=== PATIENT | male | born 1955 | race Native Hawaiian/Other Pacific Islander ===

== ENCOUNTER 2016-08-22 12:44 | Emergency (ER) | payer OTHER, MEDICAID ==
[2016-08-22 13:16] VITALS: TEMP 97.7
--- NOTE | 2016-08-22 13:37 | C.PDOC ---
History Of Present Illness Patient is a 60 year old male who presents to the ER with a complaint of hematuria that began this morning. Patient had an outpatient US done on 08/15 that showed positive BPH. Patient's urologist is Dr. Mariscal. Denies nausea, vomiting, or diarrhea. Time Seen by Provider: 08/22/16 13:22 Chief Complaint (Nursing): Male Genitourinary History Per: Patient History/Exam Limitations: no limitations Onset/Duration Of Symptoms: Hrs (Since AM) Associated Symptoms: denies: Nausea, Vomiting, Diarrhea Past Medical History Reviewed: Historical Data, Nursing Documentation, Vital Signs Vital Signs: Last Vital Signs Temp 97.7 F 08/22/16 13:12 Pulse 85 08/22/16 13:12 Resp 20 08/22/16 13:12 BP 136/81 08/22/16 13:12 Pulse Ox 99 08/22/16 14:01 - Medical History PMH: Benign Prostatic Hyperplasia, Hyperlipidemia, Hypothyroidism, Kidney Stones , Chronic Kidney Disease Surgical History: No Surg Hx - [facility] Procedures COLONOSCOPY (12/13/04) Family History: States: Unknown Family Hx - Social History Hx Alcohol Use: No Hx Substance Use: No - Immunization History Hx Tetanus Toxoid Vaccination: No Hx Influenza Vaccination: Yes Hx Pneumococcal Vaccination: No Review Of Systems Except As Marked, All Systems Reviewed And Found Negative. Gastrointestinal: Negative for: Nausea, Vomiting, Diarrhea Genitourinary: Positive for: Hematuria Physical Exam - Physical Exam Appears: Well, Non-toxic Skin: Normal Color, Warm, Dry Head: Atraumatic, Normacephalic Oral Mucosa: Moist Chest: Symmetrical Cardiovascular: Rhythm Regular, No Murmur Respiratory: Other (No acute respiratory distress. Patient speaking in complete sentences. ) Gastrointestinal/Abdominal: Soft, Tenderness (mild suprapubic), Distention ( mild suprapubic) Male Genital: Other (Gross blood on penis) Neurological/Psych: Oriented x3, Normal Speech, Normal Cognition ED Course And Treatment O2 Sat by Pulse Oximetry: 99 (Room air) Pulse Ox Interpretation: Normal Progress Note: Aguilar catheter inserted. Progress - Re-Evaluation Re-evaluation Note: 08/22/16 13:42 D/W DR Birgit MARISCAL AGREES W ER PLAN, FU OFFICE 08/22/16 15:15 S/P AGUILAR W CLEAR BLOODY URINE. PT TOLERATED WELL WO DIFF. D/W DR MARISCAL WILL FU OFFICE THIS WEEK, DC W ABX - Continuity of Care Discussed pt. case with assessment consultant/specialty: Urology Disposition Counseled Patient/Family Regarding: Studies Performed, Diagnosis, Need For Followup, Rx Given - Disposition Referrals: Rigo Mariscal MD [Staff Provider] - Disposition: HOME/ ROUTINE Disposition Time: 15:16 Condition: IMPROVED Prescriptions: Nitrofurantoin Macrocrystals [Macrobid] 1 cap PO BID #14 cap Instructions: Acute Hematuria (ED), Urinary Leg Bag (GEN) - Clinical Impression Clinical Impression: Hematuria - Scribe Statement The provider has reviewed the documentation as recorded by the Scribe Solo Penn All medical record entries made by the Scribe were at my direction and personally dictated by me. I have reviewed the chart and agree that the record accurately reflects my personal performance of the history, physical exam, medical decision making, and the department course for this patient. I have also personally directed, reviewed, and agree with the discharge instructions and disposition.
[2016-08-22 15:50] VITALS: BP 115/78; PULSE 84; RESP 18; O2SAT 98
== END 2016-08-22 15:49 | disposition home or self-care (01) ==
LOC: C.ER 12:44
DX: R31.9 Hematuria, unspecified (principal)

== ENCOUNTER 2016-08-22 18:35 | Inpatient (IN) | payer OTHER, MEDICAID ==
[2016-08-22] MEDS ORDERED: Sodium Chloride 0.9% 1,000 ML IV ONE (19:54)
--- NOTE | 2016-08-22 19:54 | C.PDOC ---
History Of Present Illness Patient, with a past medical history of benign prostatic hyperplasia, kidney stones, hypothyroidism, hyperlipidemia, and chronic kidney disease, presents to the ED complaining of large clots coming from the meatus which are causing pain. Patient was seen in the ED this morning for hematuria. Patient had an 18 bengali ruiz catheter put in and was discharged home. This evening, he notes large clots from the meatus. He spoke to Dr. Mariscal, his Urologist, who told the patient to go to the ER. An ultrasound was done on 08/15/16 which showed an enlarged prostate. Patient denies fever, chills, nausea, vomiting, abdominal pain, diarrhea, or back pain. Time Seen by Provider: 08/22/16 19:53 Chief Complaint (Nursing): Male Genitourinary History Per: Patient History/Exam Limitations: no limitations Onset/Duration Of Symptoms: Hrs, Worse Since (this evening) Current Symptoms Are (Timing): Still Present Severity: Severe Pain Scale Rating Of: 6 Quality Of Discomfort: Sharp, Burning, "Pain" Associated Symptoms: Urinary Symptoms. denies: Fever, Chills Alleviating Factors: None Recent travel outside of the [place]: No Additional History Per: Patient, Family, Prior Records Past Medical History Reviewed: Historical Data, Nursing Documentation, Vital Signs Vital Signs: Last Vital Signs Temp 97.6 F 08/22/16 19:24 Pulse 64 08/22/16 19:24 Resp 18 08/22/16 19:24 BP 98/64 L 08/22/16 19:24 Pulse Ox 100 08/22/16 20:49 - Medical History PMH: Benign Prostatic Hyperplasia, Hyperlipidemia, Hypothyroidism, Kidney Stones , Chronic Kidney Disease - [facility] Procedures COLONOSCOPY (12/13/04) Family History: States: Unknown Family Hx - Social History Hx Alcohol Use: No Hx Substance Use: No - Immunization History Hx Tetanus Toxoid Vaccination: No Hx Influenza Vaccination: Yes Hx Pneumococcal Vaccination: No Review Of Systems Constitutional: Negative for: Fever, Chills Gastrointestinal: Negative for: Nausea, Vomiting, Abdominal Pain, Diarrhea Genitourinary: Positive for: Hematuria, Other (clots from meatus) Musculoskeletal: Negative for: Back Pain Skin: Negative for: Rash, Lesions, Jaundice Neurological: Negative for: Weakness Psych: Negative for: Anxiety Physical Exam - Physical Exam Appears: Non-toxic, Other (moderate discomfort) Skin: Warm, Dry Head: Atraumatic, Normacephalic Eye(s): bilateral: PERRL, EOMI Oral Mucosa: Moist Neck: Supple Chest: Symmetrical Cardiovascular: Rhythm Regular Respiratory: No Rales, No Rhonchi, No Wheezing Gastrointestinal/Abdominal: Soft, Tenderness (suprapubic), No Guarding, No Rebound Back: No CVA Tenderness Male Genital: Other (indwelling ruiz with clots around the meatus) Extremity: Bilateral: Atraumatic, Normal Color And Temperature Neurological/Psych: Oriented x3 ED Course And Treatment - Laboratory Results Result Diagrams: 08/22/16 20:21 08/22/16 20:21 O2 Sat by Pulse Oximetry: 100 (RA) Pulse Ox Interpretation: Normal Progress Note: placed [address] ruiz for cbi, pt tolerated procedure well. instant relief Disposition Discussed With DrAlfredo: Andrea Barber Jr. Comment: accepted the pt on his service and took over the care at 9:31 PM Counseled Patient/Family Regarding: Studies Performed, Diagnosis - Disposition Disposition: HOSPITALIZED Disposition Time: 19:53 Condition: FAIR - Clinical Impression Clinical Impression: Hematuria, Urinary retention - Scribe Statement The provider has reviewed the documentation as recorded by the Scribe Lizy Mcginnis Provider Attestation: All medical record entries made by the Scribe were at my direction and personally dictated by me. I have reviewed the chart and agree that the record accurately reflects my personal performance of the history, physical exam, medical decision making, and the department course for this patient. I have also personally directed, reviewed, and agree with the discharge instructions and disposition.
[2016-08-22 20:32] LABS: BASO % 0.4 % (0.0-2.0); EOS % 0.6 % (0.0-4.0); HEMATOCRIT 37.6 % (35.0-51.0); LYMPH # 1.3 K/uL (1.0-4.3); LYMPH % 16.8 % (20.0-40.0); MEAN CELL VOLUME 81.3 fL (80.0-94.0); MEAN CORPUSCULAR HEMOGLOBIN 26.2 pg (27.0-31.0); MEAN CORPUSCULAR HGB CONC 32.2 g/dL (33.0-37.0); MEAN PLATELET VOLUME 10.6 fL (7.2-11.7); MONO # 0.5 K/uL (0.0-0.8); MONO % 6.3 % (0.0-10.0); RED CELL DISTRIBUTION WIDTH 13.7 % (11.5-14.5); WHITE BLOOD COUNT 7.4 K/uL (4.8-10.8)
[2016-08-22 20:42] LABS: CHLORIDE 99 mmol/L (98-107); SODIUM 136 mmol/L (132-148)
[2016-08-22 20:43] LABS: POTASSIUM 4.6 mmol/L (3.6-5.2)
[2016-08-22 20:44] LABS: INR 1.1
[2016-08-22 20:45] LABS: ALB/GLOB RATIO 1.3 (1.0-2.1); ALKALINE PHOSPHATASE 61 U/L (38-126); ALT/SGPT 21 U/L (21-72); AST/SGOT 22 U/L (17-59); BILIRUBIN,TOTAL 0.2 mg/dL (0.2-1.3); BLOOD UREA NITROGEN 11 mg/dL (9-20); CARBON DIOXIDE 26 mmol/L (22-30); GFR AFRICAN-AMERICAN > 60; GLUCOSE,RANDOM 170 mg/dL (75-110); TOTAL PROTEIN 6.8 g/dL (6.3-8.3)
[2016-08-22 20:46] LABS: CALCIUM 8.8 mg/dl (8.6-10.4)
[2016-08-22] MEDS ORDERED: Lidocaine 2% Jelly (Uro-Jet) ONE (20:47)
--- NOTE | 2016-08-22 22:58 | CP.PCM.HP ---
History of Present Illness - History of Present Illness History of Present Illness: Patient is a 60 year old male with past medical history of BPH, nephrolithiasis , HLD, DM who presents to the ER with complaint of hematuria and blood clots in the urine. Patient states he had a procedure with Dr. Mariscal three days ago where his bladder was cleaned out. Patient states he was told he may bleed following the procedure but that he did not start bleeding until this morning. Patient states he woke up at 4AM with blood in his urine and that he was passing clots as well. Patient went to the ED here and a ruiz catheter was inserted and he was given macrobid. Patient states he began to ooze blood and clots around the ruiz catheter and so he came back to the ER this evening. Patient states that prior to ruiz catheter insertion he was having urinary frequency and dysuria. Patient currently denies fever and chills but admits to weakness as well as suprapubic pain. PMD: Dr. Yassine Lennon Outpatient urologist Dr. Laron Reeves PMHx: BPH, HLD, nephrolithiasis, DM Meds: per list from daughter- Janumet XR 500mg, simvastatin 10mg, glimepiride 2mg, aspirin, tamsulosin 0.4mg q12h, vitamin D, centrum silver. was on rapaflo but stopped 2 days ago. patient was prescribed macrobid by ER this morning but did not start it yet PSHx: colonoscopy 5 years ago, possible cystoscopy, lithotripsy, ear surgery FamHx: age related hearing loss, both parents with diabetes Social Hx: denies alcohol, tobacco, drugs; lives in house with ; works as odd job laborer for [employer] Present on Admission - Present on Admission Any Indicators Present on Admission: Yes Urinary Catheter: Yes (places this AM) Review of Systems - Constitutional Constitutional: Weakness. absent: Chills, Fever, Lethargy - EENT Eyes: absent: Change in Vision Ears: Decreased Hearing (left ear- chronic) - Cardiovascular Cardiovascular: absent: Chest Pain, Diaphoresis, Dyspnea - Respiratory Respiratory: absent: Cough, Dyspnea - Gastrointestinal Gastrointestinal: absent: Abdominal Pain, Bloating, Constipation, Diarrhea, Hematochezia, Melena, Nausea, Vomiting - Genitourinary Genitourinary: Difficulty Urinating, Dysuria, Hematuria, Urinary Frequency, Hx /Renal Surgery - Musculoskeletal Musculoskeletal: absent: Back Pain - Integumentary Integumentary: absent: Rash, Swelling - Neurological Neurological: Weakness. absent: Dizziness, Focal Weakness - Psychiatric Psychiatric: absent: Behavioral Changes, Change in Appetite Past Patient History - Infectious Disease Hx of Infectious Diseases: None - Past Social History Smoking Status: Never Smoked - CARDIAC Hx Cardiac Disorders: Yes - RENAL Hx Chronic Kidney Disease: Yes Hx Kidney Stones: Yes - ENDOCRINE/METABOLIC Hx Hypothyroidism: Yes - GENITOURINARY/GYNECOLOGICAL Hx Genitourinary Disorders: Yes Hx Prostate Problems: Yes - PSYCHIATRIC Hx Substance Use: No - SURGICAL HISTORY Hx Surgeries: Yes Other/Comment: kidney stones removal - ANESTHESIA Hx Anesthesia: Yes Hx Anesthesia Reactions: No Meds Allergies/Adverse Reactions: Allergies Allergy/AdvReac Type Severity Reaction Status Date / Time No Known Allergies Allergy Verified 07/26/15 08:19 Physical Exam - Constitutional Appears: Non-toxic, No Acute Distress - Head Exam Head Exam: ATRAUMATIC, NORMOCEPHALIC - Eye Exam Eye Exam: EOMI, Normal appearance. absent: Scleral icterus Additional comments: no conjunctival pallor - ENT Exam ENT Exam: Mucous Membranes Moist - Respiratory Exam Respiratory Exam: Clear to Auscultation Bilateral. absent: Rales, Rhonchi, Wheezes - Cardiovascular Exam Cardiovascular Exam: +S1, +S2 - GI/Abdominal Exam GI & Abdominal Exam: Normal Bowel Sounds, Soft. absent: Distended, Tenderness - Exam Additional comments: CBI in place with clots around urethral meatus suprapubic tenderness - Extremities Exam Extremities exam: Positive for: normal inspection. Negative for: calf tenderness, pedal edema - Neurological Exam Neurological exam: Alert, Oriented x3 - Psychiatric Exam Psychiatric exam: Normal Affect - Skin Skin Exam: Dry, Normal Color, Warm Results - Vital Signs Recent Vital Signs: Last Vital Signs Temp 97.6 F 08/22/16 19:24 Pulse 64 08/22/16 19:24 Resp 18 08/22/16 19:24 BP 98/64 L 08/22/16 19:24 Pulse Ox 100 08/22/16 21:32 - Labs Result Diagrams: 08/22/16 20:21 08/22/16 20:21 Assessment & Plan (1) Hematuria Assessment and Plan: ruiz catheter exchanged for CBI consult placed for Dr. Rigo Mariscal- help appreciated patient to continue tamsulosin 0.4mg q12h UA and urine culture ordered start macrobid 100mg BID morphine 2mg q4 prn Status: Acute (2) History of BPH Assessment and Plan: continue tamsulosin 0.4mg q12h Status: Acute (3) HLD (hyperlipidemia) Assessment and Plan: continue equivalent of home med simvastatin 10mg- crestor 2.5mg Status: Acute (4) Diabetes Assessment and Plan: continue home medications: janument 500mg XR accuchecks with ISS ACHS Status: Acute (5) Prophylactic measure Assessment and Plan: SCDs no chemical anticoagulation in light of hematuria vegetarian diet- no onion, no garlic, no egg Status: Acute
[2016-08-23] MEDS ORDERED: Magnesium Hydroxide Susp 30 ml UD PO ONE ×2 (05:36→07:15)
[2016-08-23 06:56] LABS: BASO # 0.1 K/uL (0.0-0.2); BASO % 0.6 % (0.0-2.0); EOS # 0.1 K/uL (0.0-0.7); HEMATOCRIT 36.3 % (35.0-51.0); LYMPH # 1.3 K/uL (1.0-4.3); LYMPH % 15.3 % (20.0-40.0); MEAN CELL VOLUME 81.2 fL (80.0-94.0); MEAN CORPUSCULAR HEMOGLOBIN 26.3 pg (27.0-31.0); MEAN CORPUSCULAR HGB CONC 32.4 g/dL (33.0-37.0); MEAN PLATELET VOLUME 10.7 fL (7.2-11.7); MONO # 0.6 K/uL (0.0-0.8); MONO % 7.4 % (0.0-10.0); RED CELL DISTRIBUTION WIDTH 13.7 % (11.5-14.5); WHITE BLOOD COUNT 8.5 K/uL (4.8-10.8)
[2016-08-23 07:21] LABS: CHLORIDE 101 mmol/L (98-107)
[2016-08-23 07:22] LABS: SODIUM 138 mmol/L (132-148)
[2016-08-23 07:23] LABS: POTASSIUM 4.5 mmol/L (3.6-5.2)
[2016-08-23 07:25] LABS: ALB/GLOB RATIO 1.2 (1.0-2.1); ALKALINE PHOSPHATASE 62 U/L (38-126); ALT/SGPT 20 U/L (21-72); AST/SGOT 20 U/L (17-59); BILIRUBIN,TOTAL 0.2 mg/dL (0.2-1.3); BLOOD UREA NITROGEN 8 mg/dL (9-20); CARBON DIOXIDE 28 mmol/L (22-30); GFR AFRICAN-AMERICAN > 60; GLUCOSE,RANDOM 157 mg/dL (75-110); TOTAL PROTEIN 6.5 g/dL (6.3-8.3)
[2016-08-23 07:26] LABS: CALCIUM 8.7 mg/dl (8.6-10.4)
--- NOTE | 2016-08-23 08:56 | CON ---
DATE: 08/22/2016 For gross hematuria. This is a very pleasant gentleman, 50 years old. He has moderate voiding dysfunction. I have to lisandro ck my office notes. To my recollection, he also has a kidney stone. See the plans listed below. He presented now with gross hematuria earlier today. They inserted a Fo kvng catheter and he was discharged home when it was clear. And he was doing well for just a brief period of time. Apparently upon arrival at home, he was okay until he then developed gross hematuria then and leaking from the side of the catheter and he then ca lled me. I spoke to the son. We sent him back to the Emergency Room. We are admitting him now with gross hematuria. He currently has an indwelling 3-way Francis catheter. In a peculiar way, he is ble eding from the meatus of the penis, but the urine itself is relatively clear by CBI, see below, [place] I am concerned. I cannot assess well yet whether he is on any blood thinner. It appears that he takes aspirin, but t hat is it. I do not know if he takes fish oil or whether there is any other blood medications. I do have a list here that he is taking simvastatin. He had been apparently on Rapaflo, but had stopped this. I am not sure exactly why. The history is a little bit from the patient, from his and also from his son. The patient does not speak Persian perfectly, but I have been translating with the son and [id number]. See below. I have come to irrigate the Francis catheter. See the plans listed below. PAST MEDICAL AND SURGICAL HISTORY: As listed. A patient of . SOCIAL HISTORY: He came here with his . I have spoken to his children as well. Otherwise, unre markable. He is a nonsmoker. REVIEW OF SYSTEMS: Also listed above. Essentially noncontributory. PHYSICAL EXAMINATION: GENERAL: Well-nourished male, in no apparent distress. VITAL SIGNS: Within normal limits. LUNGS: Clear. ABDOMEN: Relatively soft, not overly grossly distended, but difficult to evaluate with his body habi tus. No CVA tenderness. GENITOURINARY: He has a normal phallus. He is circumcised. What is noted is the Francis catheter look s to be in good position and location, but of note, there is some blood at the meatus, but the urine within the CBI is clear. When we turn up the fluid, it drains well, when we turn up the wheel on CBI, and up down does not matter. See below. No testicular masses. RECTAL: Deferred at this point. LABORATORY VALUES: His hematocrit is noted to be 37.6 (see below, I suspect this will drop pretty qu ickly), white count is 7. The BUN and creatinine is 11/0.7. His serum glucose is 170. The remainder of labs are otherwise unremarkable. DIAGNOSES: Gross hematuria and urinary retention. At the bedside, I irrigated the catheter. It irrigates okay, although not perfectly, but I cannot ir rigate out any clots, but it seems to be working well. It is somewhat unusual to have the, at this point, even if there was bleeding via the urethra, once e put a catheter in, usually that would tamponade bleeding, especially in the absence of any kind of other bleeding . Specifically, the patient does not seem to have any. He is not bleeding from any other bleeding site s. No nasal bleeding, no rectal bleeding. His body does not look bruised. His labs including coags, etc. are all within normal limits and he does not have any obvious bl eeding medications, Coumadin, Eliquis, Plavix or the like. The patient, from what I can gather by wa y of translation with the son, the [id number] and the patient himself, it does not seem that he is taking this. So from urology standpoint, here is going to be the plan: 1. We are going to order milk of magnesia (the patient has not had a bowel movement in a few days). 2. We are going to put the patient in for a CAT scan of the abdomen and pelvis without and with IV c ontrast and see if we can further elucidate the potential source of his bleeding. The concern of cou rse would be bleeding from a malignancy. We need to evaluate this further. I need to check my office records. To my recollection, the patien t also has a kidney stone, but this would not explain well the bleeding at this point. He does not appear to be having renal colic. So for now the plan is as follows: 1. We are going to place compression stockings. 2. Milk of magnesia. 3. CT scan of abdomen and pelvis. 4. Continue the continuous bladder irrigation. 5. The patient may require cystoscopy and evacuation of clots with anesthesia. We will see how the patient does clinically and then we will make further recommendations and plans. James Mariscal MD cc: [phone] TT: 08/23/2016 08:55:27 Confirmation # [id number] Dictation # [id number] en
[2016-08-23] MEDS: (Novolin R) Insulin Human Regular 100 units/ml vial SC SCH ×4 (09:44→23:56)
[2016-08-23] MEDS ORDERED: Magnesium Hydroxide Susp 30 ml UD PO STA (11:12)
[2016-08-23] MEDS ORDERED: Iodixanol 320 mg/ml 150 ml Bottle IV ONE ×2 (13:04→15:45)
[2016-08-23] MEDS ORDERED: Magnesium Citrate Oral SOL (300 ml) PO ONE (15:07)
--- NOTE | 2016-08-23 17:21 | CT ---
PROCEDURE: CT Abdomen and Pelvis with and without intravenous contrast HISTORY: hematuria COMPARISON: None available. TECHNIQUE: Axial images of the abdomen were obtained in the pre contrast, portal venous and delayed phases of enhancement. Coronal and sagittal reformats were generated and reviewed. Contrast dose: 100 cc Visipaque 320 Radiation dose: Total exam DLP = 1362.77 mGy-cm. This CT exam was performed using one or more of the following dose reduction techniques: Automated exposure control, adjustment of the mA and/or kV according to patient size, and/or use of iterative reconstruction technique. FINDINGS: LOWER THORAX: Bibasilar atelectasis. No visible pleural effusion or pneumothorax. Small hiatal hernia/distal esophageal wall thickening. LIVER: Unremarkable. GALLBLADDER AND BILE DUCTS: Unremarkable. PANCREAS: Unremarkable. SPLEEN: Unremarkable. ADRENALS: Unremarkable. KIDNEYS AND URETERS: Wedge-shaped region of diminished enhancement identified involving medial left upper pole kidney which may reflect pyelonephritis. Differential considerations include sequela of vascular insults/infarct or infiltrating process. Too small characterize bilateral renal hypodensities, statistically likely cysts. No hydronephrosis. No obstructing calculus identified. VASCULATURE: No aortic aneurysm. BOWEL: The stomach contains ingested debris which limits evaluation. Moderate to severe diffuse constipation. APPENDIX: The appendix appears within normal limits of caliber. No secondary signs of acute appendicitis. PERITONEUM: No significant free fluid. No definite free air. LYMPH NODES: Retroperitoneal adenopathy, nonspecific. BLADDER: Francis catheter within urinary bladder which contains air likely related to recent instrumentation. REPRODUCTIVE: The prostate gland measures approximately 4.4 x 5.9 cm. BONES: Degenerative changes, greatest at L5-S1. OTHER FINDINGS: None. IMPRESSION: Wedge-shaped region of diminished enhancement identified involving medial left upper pole kidney which may reflect pyelonephritis. Differential considerations include sequela of vascular insults/infarct or infiltrating process. Correlate clinically. Too small characterize bilateral renal hypodensities, statistically likely cysts. Francis catheter within urinary bladder which contains air likely related to recent instrumentation. Correlate with urinalysis in order to exclude cystitis. Retroperitoneal adenopathy measuring up to 11 mm in short axis. , nonspecific. Moderate to severe constipation. The prostate gland appears enlarged. Recommend correlation with PSA. Small hiatal hernia/distal esophageal wall thickening.
[2016-08-23 18:11] VITALS: RESP 20
--- NOTE | 2016-08-23 20:07 | CP.PCM.PN ---
<Sukhi Du - Last Filed: 08/23/16 20:03> Subjective - Date & Time of Evaluation Date of Evaluation: 08/23/16 Time of Evaluation: 09:08 - Subjective Subjective: Pt seen and examined. Pt reports that he is passing much less blood in his urine today, but he has blood at his urethral meatus. Pt denies fever, chills, chest pain, shortness of breath, nausea, and vomiting. Objective - Vital Signs/Intake and Output Vital Signs (last 24 hours): Temp Pulse Resp BP Pulse Ox 98.1 F 75 20 114/74 98 08/23/16 15:10 08/23/16 15:10 08/23/16 15:10 08/23/16 15:10 08/23/16 15:10 - Medications Medications: Current Medications Glimepiride (Amaryl) 2 mg PO DAILY [facility] Last Admin: 08/23/16 09:56 Dose: 2 mg Ceftriaxone Sodium 1 gm/ (Sodium Chloride) 100 mls @ 100 mls/hr IVPB DAILY [facility] Last Admin: 08/23/16 09:57 Dose: 100 mls/hr Insulin Human Regular (Novolin R) 0 unit SC ACHS [facility] PRN Reason: Protocol Last Admin: 08/23/16 18:04 Dose: Not Given Metformin HCl (Glucophage Xr) 500 mg PO DAILY [facility] Last Admin: 08/23/16 09:57 Dose: 500 mg Morphine Sulfate (Morphine) 2 mg IVP Q4 PRN PRN Reason: Pain, moderate (4-7) Last Admin: 08/23/16 05:15 Dose: 2 mg Nitrofurantoin Macrocrystals (Macrobid) 100 mg PO Q12H [facility] Last Admin: 08/23/16 10:03 Dose: 100 mg Pneumococcal Polyvalent Vaccine (Pneumovax 23 Vaccine) 0.5 ml IM .ONCE ONE Stop: 08/25/16 10:01 Rosuvastatin Calcium (Crestor) 2.5 mg PO [facility] Sitagliptin Phosphate (Januvia) 50 mg PO DAILY [facility] Last Admin: 08/23/16 09:56 Dose: 50 mg Tamsulosin HCl (Flomax) 0.4 mg PO BID [facility] Last Admin: 08/23/16 18:28 Dose: 0.4 mg - Labs Labs: 08/23/16 06:50 08/23/16 06:50 PT 11.5 SECONDS (9.7-12.2) 08/23/16 06:50 INR 1.0 08/23/16 06:50 APTT 32 SECONDS (21-34) 08/23/16 06:50 - Constitutional Appears: No Acute Distress - Head Exam Head Exam: ATRAUMATIC, NORMOCEPHALIC - Eye Exam Eye Exam: EOMI, PERRL - ENT Exam ENT Exam: Mucous Membranes Moist. absent: Mucous Membranes Dry - Respiratory Exam Respiratory Exam: Clear to Ausculation Bilateral. absent: Rales, Rhonchi, Wheezes - Cardiovascular Exam Cardiovascular Exam: +S1, +S2 - GI/Abdominal Exam GI & Abdominal Exam: Soft. absent: Distended, Tenderness - Extremities Exam Extremities Exam: Full ROM. absent: Pedal Edema - Neurological Exam Neurological Exam: Alert, Awake, Oriented x3 - Psychiatric Exam Psychiatric exam: Normal Affect, Normal Mood - Skin Skin Exam: Normal Color, Warm Assessment and Plan - Assessment and Plan (Free Text) Assessment: Hematuria: Urology, Dr. Birgit Mariscal, consulted. Help appreciated. Ruiz irrigation as per Dr. Mariscal Abd/Pelvis Ct w/ and w/o IV contrast: wedge shaped region in left kidney which may represent pyelonephritis, ruiz catheter within urinary bladder, which contains air, correlate with U/A (please see full report) Ruiz catheter within urinary bladder, which contains air, correlate with U/A Rocephin 1 gm Iv qd Macrobid 100 mg po q12h Morphine 2 mg Iv q4h prn for pain Flomax 0.4 mg po bid Diabetes Mellitus: Metformin 500 mg po qd Januvia 50 mg po qd Amaryl 2 mg po qd Prophylactic Measures: DVT: SCDs, chemical anticoagulation contraindicated due to hematuria GI: protonix 40 mg po qd <Andrea Barber Jr. - Last Filed: 09/04/16 13:45> Objective - Vital Signs/Intake and Output Vital Signs (last 24 hours): Temp Pulse Resp BP Pulse Ox 98.2 F 76 20 114/61 98 08/24/16 16:00 08/24/16 16:00 08/24/16 16:00 08/24/16 16:00 08/24/16 16:00 - Labs Labs: 08/24/16 07:49 08/24/16 07:49 PT 11.5 SECONDS (9.7-12.2) 08/23/16 06:50 INR 1.0 08/23/16 06:50 APTT 32 SECONDS (21-34) 08/23/16 06:50 Attending/Attestation - Attestation I have personally seen and examined this patient.: Yes I have fully participated in the care of the patient.: Yes I have reviewed all pertinent clinical information, including history, physical exam and plan: Yes Notes (Text): 09/04/16 13:45 Agree with findings and plan
[2016-08-23] MEDS ORDERED: Rosuvastatin Calcium 2.5 mg Tab PO SCH (22:00)
--- NOTE | 2016-08-24 07:56 | PCM.URO ---
Urology Progress Note - Objective Lab Results Last 24 Hours: Laboratory Results - last 24 hr 08/23/16 08/23/16 08/23/16 11:50 16:32 21:13 POC Glucose (mg/dL) 209 H 96 208 H 08/24/16 06:47 POC Glucose (mg/dL) 126 H Intake & Output: Intake & Output 08/23/16 08/24/16 08/24/16 18:59 06:59 18:59 Intake Total 850 Output Total 3300 Balance -2450 Intake: Oral 850 Output: Urine 3300 3-way Urethral 3300 Other: # Bowel Movements 1 Vital Signs: Vital Signs - 24 hr 08/23/16 08/24/16 08/24/16 15:10 00:00 00:28 Temperature 98.1 F 98 F Pulse Rate 75 79 75 Respiratory 20 20 Rate Blood Pressure 114/74 111/66 O2 Sat by Pulse 98 100 Oximetry
[2016-08-24 07:57] LABS: BASO % 0.3 % (0.0-2.0); EOS # 0.1 K/uL (0.0-0.7); EOS % 1.6 % (0.0-4.0); HEMATOCRIT 38.8 % (35.0-51.0); LYMPH # 1.3 K/uL (1.0-4.3); LYMPH % 17.9 % (20.0-40.0); MEAN CELL VOLUME 81.7 fL (80.0-94.0); MEAN CORPUSCULAR HEMOGLOBIN 26.2 pg (27.0-31.0); MEAN CORPUSCULAR HGB CONC 32.1 g/dL (33.0-37.0); MONO # 0.6 K/uL (0.0-0.8); MONO % 8.6 % (0.0-10.0); RED CELL DISTRIBUTION WIDTH 13.9 % (11.5-14.5); WHITE BLOOD COUNT 7.1 K/uL (4.8-10.8)
[2016-08-24 08:16] LABS: CHLORIDE 102 mmol/L (98-107); POTASSIUM 4.1 mmol/L (3.6-5.2); SODIUM 139 mmol/L (132-148)
[2016-08-24 08:18] LABS: ALB/GLOB RATIO 1.2 (1.0-2.1); ALKALINE PHOSPHATASE 72 U/L (38-126); AST/SGOT 21 U/L (17-59); BILIRUBIN,TOTAL 0.2 mg/dL (0.2-1.3); CARBON DIOXIDE 27 mmol/L (22-30); GFR AFRICAN-AMERICAN > 60
[2016-08-24 08:19] LABS: ALT/SGPT 20 U/L (21-72); BLOOD UREA NITROGEN 7 mg/dL (9-20); CALCIUM 8.8 mg/dl (8.6-10.4); GLUCOSE,RANDOM 124 mg/dL (75-110); MAGNESIUM 2.3 mg/dL (1.6-2.3); PHOSPHOROUS 3.3 mg/dL (2.5-4.5)
[2016-08-24] MEDS: (Novolin R) Insulin Human Regular 100 units/ml vial SC SCH ×2 (09:02→12:42)
[2016-08-24] MEDS ORDERED: Pantoprazole 40 mg EC Tab PO SCH (10:00)
[2016-08-24 14:23] VITALS: O2SAT 98
[2016-08-24 16:39] VITALS: BP 114/61; PULSE 76; TEMP 98.2
[2016-08-24] MEDS ORDERED: Pneumococcal 23-Valent Vaccine IM ONE (16:45)
--- NOTE | 2016-08-24 23:01 | CP.PCM.DIS ---
Provider - Provider Date of Admission: 08/22/16 21:29 Attending physician: Andrea Barber Jr, MD Time Spent in preparation of Discharge (in minutes): 33 Hospital Course - Lab Results Lab Results: Most Recent Lab Values WBC 7.1 K/uL (4.8-10.8) 08/24/16 07:49 RBC 4.76 Mil/uL (4.40-5.90) 08/24/16 07:49 Hgb 12.5 g/dL (12.0-18.0) 08/24/16 07:49 Hct 38.8 % (35.0-51.0) 08/24/16 07:49 MCV 81.7 fL (80.0-94.0) 08/24/16 07:49 MCH 26.2 pg (27.0-31.0) L 08/24/16 07:49 MCHC 32.1 g/dL (33.0-37.0) L 08/24/16 07:49 RDW 13.9 % (11.5-14.5) 08/24/16 07:49 Plt Count 139 K/uL (130-400) 08/24/16 07:49 MPV 11.0 fL (7.2-11.7) 08/24/16 07:49 Neut % (Auto) 71.6 % (50.0-75.0) 08/24/16 07:49 Lymph % (Auto) 17.9 % (20.0-40.0) L 08/24/16 07:49 [place] % (Auto) 8.6 % (0.0-10.0) 08/24/16 07:49 Eos % (Auto) 1.6 % (0.0-4.0) 08/24/16 07:49 Baso % (Auto) 0.3 % (0.0-2.0) 08/24/16 07:49 Neut # 5.1 K/uL (1.8-7.0) 08/24/16 07:49 Lymph # 1.3 K/uL (1.0-4.3) 08/24/16 07:49 [place] # 0.6 K/uL (0.0-0.8) 08/24/16 07:49 Eos # 0.1 K/uL (0.0-0.7) 08/24/16 07:49 Baso # 0.0 K/uL (0.0-0.2) 08/24/16 07:49 PT 11.5 SECONDS (9.7-12.2) 08/23/16 06:50 INR 1.0 08/23/16 06:50 APTT 32 SECONDS (21-34) 08/23/16 06:50 Sodium 139 mmol/L (132-148) 08/24/16 07:49 Potassium 4.1 mmol/L (3.6-5.2) 08/24/16 07:49 Chloride 102 mmol/L (98-107) 08/24/16 07:49 Carbon Dioxide 27 mmol/L (22-30) 08/24/16 07:49 Anion Gap 14 (10-20) 08/24/16 07:49 BUN 7 mg/dL (9-20) L 08/24/16 07:49 Creatinine 0.7 MG/DL (0.8-1.5) L 08/24/16 07:49 Est GFR ( Amer) > 60 08/24/16 07:49 Est GFR (Non-Af Amer) > 60 08/24/16 07:49 POC Glucose (mg/dL) 105 mg/dL (65-110) 08/24/16 16:12 Random Glucose 124 mg/dL (75-110) H 08/24/16 07:49 Calcium 8.8 mg/dl (8.6-10.4) 08/24/16 07:49 Phosphorus 3.3 mg/dL (2.5-4.5) 08/24/16 07:49 Magnesium 2.3 mg/dL (1.6-2.3) 08/24/16 07:49 Total Bilirubin 0.2 mg/dL (0.2-1.3) 08/24/16 07:49 AST 21 U/L (17-59) 08/24/16 07:49 ALT 20 U/L (21-72) L 08/24/16 07:49 Alkaline Phosphatase 72 U/L (38-126) 08/24/16 07:49 Total Protein 7.0 g/dL (6.3-8.3) 08/24/16 07:49 Albumin 3.9 g/dL (3.5-5.0) 08/24/16 07:49 Globulin 3.1 gm/dL (2.2-3.9) 08/24/16 07:49 Albumin/Globulin Ratio 1.2 (1.0-2.1) 08/24/16 07:49 Prostate Specific Ag 4.20 ng/mL (0.00-4.0) H 08/23/16 06:50 - Hospital Course Hospital Course: HPI: Patient is a 60 year old male with past medical history of BPH, nephrolithiasis, HLD, DM who presented to the ER with complaint of hematuria and blood clots in the urine. Patient stated he had a procedure with Dr. Mariscal three days ago where his bladder was cleaned out. Patient stateds he was told he may bleed following the procedure but that he did not start bleeding until the following morning. Patient stated he woke up at 4AM with blood in his urine and that he was passing clots as well. Patient went to the ED and a ruiz catheter was inserted and he was given macrobid. Patient stated he began to ooze blood and clots around the ruiz catheter and so he came back to the ER in the evening. Patient states that prior to ruiz catheter insertion he was having urinary frequency and dysuria. Patient denied fever and chills. Hospital Course: Urologist, Dr. Dominik Mariscal, was consulted. Pt received irrigation of the ruiz catheter. Abd/Pelvis Ct w/ and w/o IV contrast revealed wedge shaped region in left kidney which may represent pyelonephritis, ruiz catheter within urinary bladder, which contains air, correlate with U/A (please see full report). Pt started on rocephin and macrobid. Once blood in ruiz catheter was clear after irrigation, pt had ruiz catheter removed. Pt passed clear urine. As per urologist, pt was cleared for discharge to home with outpatient follow up. Discharge Exam - Head Exam Head Exam: ATRAUMATIC, NORMOCEPHALIC - Eye Exam Eye Exam: EOMI, PERRL - ENT Exam ENT Exam: Mucous Membranes Moist. absent: Mucous Membranes Dry - Respiratory Exam Respiratory Exam: Clear to PA & Lateral. absent: Wheezes, Respiratory Distress - Cardiovascular Exam Cardiovascular Exam: +S1, +S2. absent: Gallop, Rubs - GI/Abdominal Exam GI & Abdominal Exam: Normal Bowel Sounds, Tenderness. absent: Firm, Guarding - Extremities Exam Extremities exam: full ROM - Neurological Exam Neurological exam: Alert, Oriented x3 - Psychiatric Exam Psychiatric exam: Normal Affect, Normal Mood Discharge Plan - Follow Up Plan Condition: FAIR Disposition: HOME/ ROUTINE Patient education suggested?: Yes Instructions: Urinary Retention in Men (GEN), Diabetic Foot Care (DC), Meal Planning with Diabetes Exchanges (DC), Acute Hematuria (DC) Additional Instructions: Please resume all home medications. Please follow up with urologist, Dr. Dominik Mariscal, within one week. Please also follow up with primary medical doctor. If symptoms worsen or new symptoms arise, please return to the hospital. Referrals: Andrea Barber Jr., MD [Medical Doctor] - Yassine Lennon MD [Medical Doctor] - Rigo Mariscal MD [Staff Provider] -
[2016-08-25 19:03] LABS: ESTIM. PROBABILITY CANCER >50 Percent (()); TOTAL PSA 11.9 ng/mL (<=4.0)
== END 2016-08-24 18:00 | disposition home or self-care (01) | DRG 696 ==
LOC: C.ER 18:35 → C.5T 21:29
PROVIDERS: ADMIT Internal Medicine; ATTEND Internal Medicine
DX: R31.0 Gross hematuria (principal); E11.22 Type 2 diabetes mellitus with diabetic chronic kidney disease; N40.1 Benign prostatic hyperplasia with lower urinary tract symptoms; E78.5 Hyperlipidemia, unspecified; N18.9 Chronic kidney disease, unspecified; E03.9 Hypothyroidism, unspecified; R33.9 Retention of urine, unspecified; Z79.82 Long term (current) use of aspirin; Z87.442 Personal history of urinary calculi; K59.00 Constipation, unspecified; Z79.84 Long term (current) use of oral hypoglycemic drugs; N20.0 Calculus of kidney

== ENCOUNTER 2016-08-27 02:11 | Inpatient (IN) | payer OTHER, MEDICAID ==
--- NOTE | 2016-08-27 02:21 | C.PDOC ---
History Of Present Illness Patient presents to the ED with complaints of hematuria and clots of the meatus. Patient notes pain and similar episodes a couple days ago. Patient denies any other complaints at this time. Time Seen by Provider: 08/27/16 02:21 History Per: Patient History/Exam Limitations: no limitations Onset/Duration Of Symptoms: Days Current Symptoms Are (Timing): Still Present Severity: Mild Pain Scale Rating Of: 4 Quality Of Discomfort: "Pain" Associated Symptoms: denies: Fever, Chills, Nausea, Vomiting, Diarrhea Recent travel outside of the [place]: No Past Medical History Reviewed: Historical Data, Nursing Documentation, Vital Signs - Medical History PMH: Benign Prostatic Hyperplasia, Hyperlipidemia, Hypothyroidism, Kidney Stones , Chronic Kidney Disease - [facility] Procedures COLONOSCOPY (12/13/04) Family History: States: No Known Family Hx - Social History Hx Alcohol Use: No Hx Substance Use: No - Immunization History Hx Tetanus Toxoid Vaccination: No Hx Influenza Vaccination: Yes Hx Pneumococcal Vaccination: No Review Of Systems Constitutional: Negative for: Fever, Chills, Sweats Cardiovascular: Negative for: Chest Pain Respiratory: Negative for: Cough, Shortness of Breath Gastrointestinal: Positive for: Abdominal Pain (suprapubic pain ). Negative for : Nausea, Vomiting, Diarrhea Genitourinary: Positive for: Hematuria, Other (clots of the meatus ) Musculoskeletal: Negative for: Back Pain Skin: Negative for: Rash, Lesions, Jaundice, Bruising Neurological: Negative for: Weakness Psych: Negative for: Anxiety Physical Exam - Physical Exam Appears: Non-toxic, No Acute Distress Skin: Warm, Dry Neck: Supple Cardiovascular: Rhythm Regular Respiratory: No Rales, No Rhonchi, No Stridor, No Wheezing Gastrointestinal/Abdominal: Soft, Tenderness (mild suprapubic tenderness ), No Distention, No Guarding, No Rebound Male Genital: Other (clots of the meatus ) Extremity: Normal ROM, No Tenderness Neurological/Psych: Oriented x3 ED Course And Treatment O2 Sat by Pulse Oximetry: 99 Pulse Ox Interpretation: Normal Progress Note: spoke with dr mariscal. will take the pt to the or for cystoscopy Disposition Discussed With : Rigo Mariscal Comment: accepted the pt on his service and took over the care at 2:55AM Doctor Will See Patient In The: ED Counseled Patient/Family Regarding: Studies Performed, Diagnosis - Disposition Disposition: HOSPITALIZED Disposition Time: 02:21 Condition: FAIR - POA Present On Arrival: None - Clinical Impression Clinical Impression: Hematuria - Scribe Statement The provider has reviewed the documentation as recorded by the Ambreenibe Leigh Johnson All medical record entries made by the Ambreenibe were at my direction and personally dictated by me. I have reviewed the chart and agree that the record accurately reflects my personal performance of the history, physical exam, medical decision making, and the department course for this patient. I have also personally directed, reviewed, and agree with the discharge instructions and disposition. Decision To Admit - Pt Status Changed To: Hospital Disposition Of: Inpatient - Admit Certification Admit to Inpatient:: After my assessment, the patient will require hospitalization for at least two midnights. This is because of the severity of symptoms shown, intensity of services needed, and/or the medical risk in this patient being treated as an outpatient. - InPatient: Physician Admission Certification: I certify that this patient requires 2 or more midnights of care for the following reason:: After my assessment, the patient will require hospitalization for at least two midnights. This is because of the severity of symptoms shown, intensity of services needed, and/or the medical risk in this patient being treated as an outpatient. - . Bed Request Type: Regular Admitting Physician: bibi Patient Diagnosis: Hematuria
[2016-08-27 03:00] LABS: BASO % 0.5 % (0.0-2.0); EOS # 0.2 K/uL (0.0-0.7); EOS % 4.1 % (0.0-4.0); HEMATOCRIT 35.3 % (35.0-51.0); LYMPH # 1.3 K/uL (1.0-4.3); LYMPH % 28.4 % (20.0-40.0); MEAN CELL VOLUME 81.6 fL (80.0-94.0); MEAN CORPUSCULAR HEMOGLOBIN 26.3 pg (27.0-31.0); MEAN CORPUSCULAR HGB CONC 32.3 g/dL (33.0-37.0); MEAN PLATELET VOLUME 11.4 fL (7.2-11.7); MONO # 0.5 K/uL (0.0-0.8); RED CELL DISTRIBUTION WIDTH 14.1 % (11.5-14.5); WHITE BLOOD COUNT 4.7 K/uL (4.8-10.8)
[2016-08-27 03:06] LABS: URINE BILIRUBIN NEGATIVE (NEGATIVE); URINE COLOR Yellow (YELLOW); URINE GLUCOSE (UA) NORMAL (Normal); URINE KETONE NEGATIVE (NEGATIVE)
[2016-08-27 03:07] LABS: CHLORIDE 103 mmol/L (98-107); RBC URINE 3528 /hpf (0-3); SODIUM 139 mmol/L (132-148); URINE BLOOD 3+ (NEGATIVE); URINE LEUKOCYTE ESTERASE NEG Leu/uL (Negative); URINE PROTEIN 1+ mg/dL (NEGATIVE); URINE UROBILINOGEN NORMAL mg/dL (0.2-1.0)
[2016-08-27 03:08] LABS: POTASSIUM 4.2 mmol/L (3.6-5.2)
[2016-08-27 03:10] LABS: CARBON DIOXIDE 23 mmol/L (22-30); GFR AFRICAN-AMERICAN > 60
[2016-08-27 03:11] LABS: BLOOD UREA NITROGEN 7 mg/dL (9-20); CALCIUM 8.7 mg/dl (8.6-10.4); GLUCOSE,RANDOM 144 mg/dL (75-110)
[2016-08-27] MEDS ORDERED: Propofol 10 mg/ml Inj (20 ML) ONE (03:19)
[2016-08-27] MEDS ORDERED: cefTRIAXone IV 1 gm in Dextros 50 ML IVPB ONE (03:19)
[2016-08-27] MEDS ORDERED: Lactated Ringer's 1,000 ML IV ONE (03:22)
[2016-08-27] MEDS ORDERED: cefTRIAXone 1 gm in Water For Injection 2.1 ML IM ONE (03:25)
[2016-08-27] MEDS: HYDROmorphone 0.5 mg/0.5 ml ISec IVP PRN ×2 (03:58→04:24)
[2016-08-27] MEDS: Acetaminophen-Codeine 300/30 mg Tab PO PRN ×2 (08:09→14:41)
--- NOTE | 2016-08-27 08:26 | HP ---
Urology emergency admission. See the previously dictated notes from this hospitalization. The patient was here most recently 08/24 , 08/25. On 08/25, he went home. The presence of gross hematuria at that time was noted. We had a Francis catheter. I see the patient several times. Subsequently, the urine was cleared and when the urine ____, we removed the Francis and the patient went home and he was urinating clear yellow urine. Last night, 08/26 at about 9:00 p.m. Monday evening, he noted a little blood in the urine. He waited a little while and then he noted again a little blood in the urine and then at about 1:37 a.m., his s on called me. It is currently 3:20 a.m. as I am dictating this note. At 1:37, the patient's son fidel lled me that he was having significant amount of blood in the urine and was going to come to the [facility] Room. I actually came here to meet him. We are going to the OR immediately. This is an emergency admission. Basically, the patient is bleeding with clots of urine and previously he was also bleeding. Then it cleared up, but at this point, I would like to see what is going on further. The patient has a history of a cystoscopic evaluation in the past. The patient also9 has a history of voiding dysfunction. Most of the communication is by way of translation with his son. A very pleasant gentleman about it. I also believe that he might have a stone. I have to check from my previous record. I do not have that with me at this second. Otherwise, the patient is here today for emergency admission. We are going to the OR immediately. PAST MEDICAL AND SURGICAL HISTORY: As listed. Otherwise unremarkable. REVIEW OF SYSTEMS: Listed above. PHYSICAL EXAMINATION GENERAL: Well-nourished male in no apparent distress. ABDOMEN: Relatively soft. It does not feel grossly distended. LABORATORIES: Labs are as follows: The white count is 4.7, hematocrit is 35%. That is about where it was before. I think it was about 37. I do not have those numbers in front of me at this minute, but rashi's labs are there. BUN and creatinine is 7/0.7. No other changes are noted. Obviously, the urinalysis tremendous amount of blood noted. Nitrites are negative. DIAGNOSES: Acute bleeding from the urinary system. Previous workup revealed no obvious abnormalities of the upper tracts. We tried monitoring just with observation, but at this point, we are going to bring the patient to [facility] operating room now at 3:30 in the morning. PLAN: As follows: I discussed options with patient and specifically, just inserting a Francis cathete r, including observation and operating in the morning. The risks, benefits of treatment were discussed at length. The patient is feeling comfortable. As I am talking, he feels that blood is forming inside his bla er and would like this to be evaluated as quickly as possible. With his history and that in mind, with no obvious coagulopathies, etc., we are going to bring him to the OR for an emergency procedure. So this is an emergency admission. Diagnosis is gross hematuria with urinary clots. Plan as follows: Emergency cystoscope and evacuation of clots and fulguration and biopsy all as need ed. Further plans will follow depending on what we find clinically. James Mariscal MD cc: [id number] TT: 08/27/2016 08:26:06 tn
--- NOTE | 2016-08-27 08:26 | OP ---
PROCEDURE DATE: 08/27/2016 PREOPERATIVE DIAGNOSES: Gross hematuria, voiding dysfunction, clot retention. POSTOPERATIVE DIAGNOSE: Gross hematuria, voiding dysfunction, clot retention, and bleeding is from t he prostatic bladder neck region, a spontaneous bleed. PROCEDURE: Cystoscopy, evacuation of a ton of clots, and fulguration of bleeding sites at the bladde r neck. COMPLICATIONS: There were no complications. BLOOD LOSS: Less than 25 mL. This is an emergency operation. DRAINS: A Francis catheter 24-[place] with CBI clear urine. INDICATIONS: See history and physical. This is a very pleasant gentleman who previously is here wit h clot urinary retention, we put in a Francis. We monitored the patient, subsequently he cleared up, [place] sent him home, he was doing well for a couple of days and then as mentioned in the history and phys ical, the patient called me at 1:37 that he has been bleeding since 9:00. We brought him to the hosp ital. It is about 3:30, we was brought him to the operating room. The time of this dictation is [facility] 4:30 or so. FINDINGS: Normal anterior, no strictures, the veru is visually occlusive, large juicy bloody prostat e. Bleeding at the bladder neck. The bladder itself was inspected carefully. There are no bladder lesions. The ureteral orifices show clear efflux from both sides. I took multiple pictures of the b ladder and the prostate. After evacuating a ton of clots, we fulgurated the bleeding sites. I took pictures of these as well. At the termination of the procedure, there was no bleeding. Left the patient with a 24-[place] to CBI with a little traction on the catheter. There were no complications. See the addendum at the end for further plans, but I am going to start the patient on Proscar and antibiotics, assume this is prostatic bleeding and no other. DESCRIPTION OF PROCEDURE: After obtaining informed consent, the patient brought to the OR and placed on the table, routine monitors placed, timeouts were called. We confirmed the patient's position, [place] also gave the patient antibiotic prophylaxis. I do want to mention I explained to the patient justin gtz risks and benefits of doing this emergently as opposed to waiting. Then, after discussing those op tions with the patient, he is here now for the above listed procedure. The patient was placed on the table. Timeouts were called to confirm the patient and positioning. A timeout, etc., antibiotics have been given. The patient in the lithotomy position. Prepped in usual sterile fashion. There is actually just blood dripping from his penis. In fact we required before even just using Betadine to clean the penis, we cleaned him with Hibiclens scrub arou nd the pelvic area, there is just blood leaking out of the penis. The cystoscope via the urethra under direction vision. Anterior normal, no strictures. The veru is visually occlusive. Immediately, at the bladder neck, I could see bleeding. I took multiple picture s. It is just a really irritated prostate. The procedure continues with the bladder now being inspected. There is a lot of blood, so the first thing I did was just irrigate out a lot of blood and removed a lot of clots, till they all cleared. Now I inspected the bladder more carefully, and I could see the ureteral orifice, clear efflux on bot h sides, took pictures. There is no obvious bladder lesion. I do not see a bladder tumor with a reasonably good look (see b elow addendum). I also think that we see bleeding at the prostatic bladder neck area, I took multiple pictures of thi s, turned off the water. I could see the bleeding, turned back on the water to clear it. So at this point with not any lesions in the bladder, clear efflux from above, I am pretty sure the b leeding is from the prostate. I set up cautery and we just cauterized gently the area, just the surface, to stop the bleeding. We washed out any further blood that was there, really nothing to speak of. I monitored, I looked at the patient, the urine looks, inserted a Francis catheter 24-[place] via the ur ethra without difficulty, placed it about 40 mL in the balloon to keep it on traction. The patient tolerated the procedure well without complication. At the termination there is some mild traction. The urine is completely clear with the CBI barely dr ipping. The patient was transferred to the recovery room in stable condition having tolerated the procedure w ell, without complication. ADDENDUM: Antibiotics and Proscar and then further plans will follow. James Mariscal MD cc: [id number] TT: 08/27/2016 08:25:44 jn
[2016-08-27] MEDS ORDERED: TAMSULOSIN HCL PO SCH (14:00)
[2016-08-27] MEDS ORDERED: DUTASTERIDE PO SCH (14:00)
[2016-08-27] MEDS ORDERED: Magnesium Citrate Oral SOL (300 ml) PO ONE (16:25)
[2016-08-27 23:54] VITALS: RESP 20; O2SAT 97
[2016-08-28 08:22] VITALS: BP 134/78; PULSE 97; TEMP 98.4
[2016-08-28] MEDS ORDERED: Multivitamin With Minerals Tab PO SCH (10:00)
[2016-08-28] MEDS ORDERED: Ergocalciferol 50,000 Intl Units Cap PO SCH (10:00)
[2016-08-28] MEDS ORDERED: Home Med 1 UNIT (Silodosin [Rapaflo] 8 MG) PO SCH (10:00)
[2016-08-28] MEDS ORDERED: Pneumococcal 23-Valent Vaccine IM ONE (11:30)
[2016-08-29] MEDS ORDERED: Pneumococcal 23-Valent Vaccine IM ONE (10:00)
== END 2016-08-28 02:20 | disposition home or self-care (01) | DRG 311 ==
LOC: C.ER 02:11 → C.9E 03:00 → C.3T 03:28
PROVIDERS: ADMIT Urology; ATTEND Urology
PROC: 0T5C8ZZ Destruction of Bladder Neck, Via Natural or Artificial Opening Endoscopic (ICD-10-PCS; 2016-08-27)
PROC: 0T9C80Z Drainage of Bladder Neck with Drainage Device, Via Natural or Artificial Opening Endoscopic (ICD-10-PCS; principal; 2016-08-27 03:00)
DX: R31.0 Gross hematuria (principal); E03.9 Hypothyroidism, unspecified; N40.1 Benign prostatic hyperplasia with lower urinary tract symptoms; E78.5 Hyperlipidemia, unspecified; R33.8 Other retention of urine; Z87.442 Personal history of urinary calculi